=== PATIENT | female | born 1935 | race Caucasian/White ===

== ENCOUNTER 2016-08-22 08:27 | Outpatient (CLI) ==
[2013-02-21 18:15] VITALS: BMI 18.8
[2016-08-22 15:51] LABS: BASOPHILS # (AUTO) 0.1 K/uL (0-0.2); BASOPHILS % (AUTO) 1.1 % (0.0-3.0); EOSINOPHILS # (AUTO) 0.2 K/ul (0.0-0.7); EOSINOPHILS % (AUTO) 3.8 % (0.0-7.0); HEMATOCRIT 37.7 % (37.0-47.0); IMMATURE GRANULOCYTE % (AUTO) 0.2 % (0.0-5.0); LYMPHOCYTES # (AUTO) 1.8 K/uL (0.60-3.4); LYMPHOCYTES % (AUTO) 32.8 (10.0-50.0); MEAN CORPUSCULAR HEMOGLOBIN 26.5 pg (27.0-31.0); MEAN CORPUSCULAR HGB CONC 31.8 (31.8-35.4); MEAN CORPUSCULAR VOLUME 83.2 fl (81.0-99.0); MONOCYTES # (AUTO) 0.4 K/uL (0.4-2.0); MONOCYTES % (AUTO) 7.4 (0-10); NEUTROPHILS % (AUTO) 54.7; PLATELET COUNT 201 10^3/uL (140-440); RED BLOOD COUNT 4.53 10^6/ul (4.20-5.40); WHITE BLOOD COUNT 5.55 K/ul (4.6-10.2)
[2016-08-22 15:57] LABS: BILIRUBIN,URINE Negative (NEGATIVE); KETONES,URINE Negative (NEGATIVE); LEUKOCYTE ESTERASE ,URINE Trace (NEGATIVE); NITRITE,URINE Negative (NEGATIVE); PROTEIN,URINE Negative (NEGATIVE); URINE, BLOOD Negative (NEGATIVE)
[2016-08-22 15:59] LABS: ALBUMIN 4.1 g/dL (3.4-5.0); ALBUMIN/GLOBULIN RATIO 1.28; ANION GAP 14.7; BILIRUBIN,TOTAL 0.52 mg/dL (0.00-1.20); BUN/CREATININE RATIO 20.18; CALCIUM 9.6 mg/dL (8.2-10.2); CREATININE 1.09 mg/dL (0.60-1.30); POTASSIUM 4.7 mmol/L (3.5-5.10); TOTAL PROTEIN 7.3 g/dL (5.8-8.1)
[2016-08-22 16:06] LABS: ADD URINE MICROSCOPIC YES
== END 2016-08-22 08:28 | disposition home or self-care (01) ==
LOC: LAB 08:27
PROVIDERS: ATTEND General Practice
DX: C64.9 Malignant neoplasm of unspecified kidney, except renal pelvis (principal); I10 Essential (primary) hypertension; I87.2 Venous insufficiency (chronic) (peripheral); E78.5 Hyperlipidemia, unspecified; Z79.899 Other long term (current) drug therapy
CPT/HCPCS: 36415; 80053; 80061; 81001; 83036; 85025

== ENCOUNTER 2016-12-24 09:46 | Outpatient (CLI) ==
[2013-02-21 18:15] VITALS: BMI 18.8
[2016-12-24 13:20] LABS: BILIRUBIN,URINE Negative (NEGATIVE); KETONES,URINE Negative (NEGATIVE); LEUKOCYTE ESTERASE ,URINE Negative (NEGATIVE); NITRITE,URINE Negative (NEGATIVE); PH,URINE 7.5 (5-9); PROTEIN,URINE Negative (NEGATIVE); URINE, BLOOD Trace-intact (NEGATIVE)
[2016-12-24 13:25] LABS: ALBUMIN/GLOBULIN RATIO 1.25; ANION GAP 17.2; BASOPHILS # (AUTO) 0.1 K/uL (0-0.2); BASOPHILS % (AUTO) 1.1 % (0.0-3.0); BILIRUBIN,TOTAL 0.57 mg/dL (0.00-1.20); BUN/CREATININE RATIO 19.81; CALCIUM 9.5 mg/dL (8.2-10.2); CHOL/HDL RATIO 2.9 (4.5-5.5); CREATININE 1.06 mg/dL (0.60-1.30); EOSINOPHILS # (AUTO) 0.1 K/ul (0.0-0.7); EOSINOPHILS % (AUTO) 1.9 % (0.0-7.0); HEMATOCRIT 37.2 % (37.0-47.0); HEMOGLOBIN 11.9 g/dl (12.0-16.0); IMMATURE GRANULOCYTE % (AUTO) 0.4 % (0.0-5.0); LYMPHOCYTES # (AUTO) 1.6 K/uL (0.60-3.4); MEAN CORPUSCULAR HEMOGLOBIN 27.1 pg (27.0-31.0); MEAN CORPUSCULAR VOLUME 84.7 fl (81.0-99.0); MONOCYTES # (AUTO) 0.4 K/uL (0.4-2.0); MONOCYTES % (AUTO) 7.5 (0-10); NEUTROPHILS # (AUTO) 2.6 K/ul (2.0-6.9); NEUTROPHILS % (AUTO) 55.1; PLATELET COUNT 184 10^3/uL (140-440); POTASSIUM 4.2 mmol/L (3.5-5.10); RED BLOOD COUNT 4.39 10^6/ul (4.20-5.40); TOTAL PROTEIN 7.2 g/dL (5.8-8.1); WHITE BLOOD COUNT 4.67 K/ul (4.6-10.2)
[2016-12-24 14:14] LABS: ADD URINE MICROSCOPIC YES
[2016-12-24 14:37] LABS: BACTERIA,URINE TRACE (NOT PRESENT)
== END 2016-12-24 09:47 | disposition home or self-care (01) ==
LOC: LAB 09:46
PROVIDERS: ATTEND General Practice
DX: C64.9 Malignant neoplasm of unspecified kidney, except renal pelvis (principal); I10 Essential (primary) hypertension; R09.89 Other specified symptoms and signs involving the circulatory and respiratory systems; Z79.899 Other long term (current) drug therapy
CPT/HCPCS: 36415; 80053; 80061; 81001; 85025; 87086

== ENCOUNTER 2017-01-19 08:38 | Outpatient (CLI) ==
[2013-02-21 18:15] VITALS: BMI 18.8
[2017-01-19 09:08] LABS: HEMATOCRIT 37.5 % (37.0-47.0); HEMOGLOBIN 12.2 g/dl (12.0-16.0); MEAN CORPUSCULAR HEMOGLOBIN 27.3 pg (27.0-31.0); MEAN CORPUSCULAR HGB CONC 32.5 (31.8-35.4); MEAN CORPUSCULAR VOLUME 83.9 fl (81.0-99.0); RED BLOOD COUNT 4.47 10^6/ul (4.20-5.40); WHITE BLOOD COUNT 5.11 K/ul (4.6-10.2)
--- NOTE | 2017-01-19 09:08 | DI ---
EXAM: Two views of the chest. History: Renal cell carcinoma. Comparison: Chest radiograph 01/29/2016 Findings: Heart size is within normal limits. No focal consolidation. No appreciable pleural flui d and no pneumothorax. Atherosclerotic vascular calcifications. Scoliosis. Impression: No acute cardiopulmonary process. No change compared to the prior study.
[2017-01-19 09:25] LABS: ALBUMIN 4.3 g/dL (3.4-5.0); ALBUMIN/GLOBULIN RATIO 1.43; BILIRUBIN,TOTAL 0.65 mg/dL (0.00-1.20); BUN/CREATININE RATIO 16.66; CALCIUM 9.9 mg/dL (8.2-10.2); CREATININE 1.14 mg/dL (0.60-1.30); TOTAL PROTEIN 7.3 g/dL (5.8-8.1)
--- NOTE | 2017-01-19 09:27 | US ---
EXAM: RENAL ULTRASOUND HISTORY: Renal cell carcinoma. Left nephrectomy 2012. FINDINGS: Ultrasound renal. Duncan-scale ultrasound and color Doppler imaging was performed. The right kidney measured 10.3 x 4.0 x 4.1 cm. The right kidney had grossly normal cortical echogen[place] and volume without sonographic evidence of mass or hydronephrosis. The urinary bladder was les s than optimally distended for evaluation although grossly unremarkable. IMPRESSION: Previous left nephrectomy. Right kidney appeared grossly normal within limits of sonography as did the urinary bladder.
== END 2017-01-19 08:39 | disposition home or self-care (01) ==
LOC: RAD 08:38
PROVIDERS: ATTEND Urology
DX: C64.9 Malignant neoplasm of unspecified kidney, except renal pelvis (principal)
CPT/HCPCS: 36415; 76770; 80053; 85027

== ENCOUNTER 2017-05-22 08:56 | Outpatient (CLI) ==
[2013-02-21 18:15] VITALS: BMI 18.8
[2017-05-22 10:04] LABS: BASOPHILS # (AUTO) 0.1 K/uL (0-0.2); BASOPHILS % (AUTO) 0.9 % (0.0-3.0); EOSINOPHILS # (AUTO) 0.1 K/ul (0.0-0.7); EOSINOPHILS % (AUTO) 1.1 % (0.0-7.0); HEMOGLOBIN 11.9 g/dl (12.0-16.0); IMMATURE GRANULOCYTE % (AUTO) 0.2 % (0.0-5.0); LYMPHOCYTES # (AUTO) 1.7 K/uL (0.60-3.4); LYMPHOCYTES % (AUTO) 31.1 (10.0-50.0); MEAN CORPUSCULAR HEMOGLOBIN 27.7 pg (27.0-31.0); MEAN CORPUSCULAR HGB CONC 33.1 (31.8-35.4); MEAN CORPUSCULAR VOLUME 83.9 fl (81.0-99.0); MONOCYTES # (AUTO) 0.4 K/uL (0.4-2.0); MONOCYTES % (AUTO) 7.6 (0-10); NEUTROPHILS # (AUTO) 3.3 K/ul (2.0-6.9); NEUTROPHILS % (AUTO) 59.1; PLATELET COUNT 188 10^3/uL (140-440); RED BLOOD COUNT 4.29 10^6/ul (4.20-5.40); WHITE BLOOD COUNT 5.56 K/ul (4.6-10.2)
[2017-05-22 10:06] LABS: ADD URINE MICROSCOPIC YES; BILIRUBIN,URINE Negative (NEGATIVE); KETONES,URINE Negative (NEGATIVE); LEUKOCYTE ESTERASE ,URINE 1+ (NEGATIVE); NITRITE,URINE Negative (NEGATIVE); PROTEIN,URINE Negative (NEGATIVE); URINE, BLOOD Trace-intact (NEGATIVE)
--- NOTE | 2017-05-22 10:09 | US ---
Exam: Duncan-scale and color Doppler ultrasonographic evaluation of the carotid arteries. Comparison: 06/05/2016. Reason for exam: Other specified symptoms of circulatory and respirator FINDINGS: A moderate amount of dense atheromatous plaque is seen in the proximal right internal doan tid artery at the level of the bulb. The right external carotid artery measures 80 cm/sec. The right common carotid artery measures 40 / 10 cm/sec. The right internal carotid artery peak systolic velocity measures 110 cm/sec . The right internal carotid artery/CCA PSV ratio measures 2.9. The right internal carotid artery end-diastolic velocity measures 40 cm/sec. The right vertebral artery was not seen on the examination. There is a small to moderate amount of dense plaque in the proximal left internal carotid artery. The left external carotid artery measures 60 cm/sec. The left common carotid artery measures 70 / 20 cm/sec. The left internal carotid artery systolic velocity measures 100 cm/sec. The left internal carotid artery/CCA PSV ratio measures 1.4. The left internal carotid artery end-diastolic velocity measures 30 cm/sec. There is normal antegrade right vertebral artery flow. Impression: 1. No significant stenotic disease is seen in the right or left internal carotid arteries by peak sy stolic velocity measurements. 2. Dense atherosclerotic plaque in the proximal right internal carotid artery limits interpretation this region secondary to shadowing. 3. The right vertebral artery was not seen on the exam.
[2017-05-22 10:20] LABS: ALBUMIN 3.7 g/dL (3.4-5.0); ALBUMIN/GLOBULIN RATIO 1.12; ANION GAP 12.3; BILIRUBIN,TOTAL 0.45 mg/dL (0.00-1.20); BUN/CREATININE RATIO 18.18; CALCIUM 9.4 mg/dL (8.2-10.2); CHOL/HDL RATIO 3.2 (4.5-5.5); CREATININE 0.99 mg/dL (0.60-1.30); POTASSIUM 4.3 mmol/L (3.5-5.10)
== END 2017-05-22 08:57 | disposition home or self-care (01) ==
LOC: RAD 08:56
PROVIDERS: ATTEND General Practice
DX: R09.89 Other specified symptoms and signs involving the circulatory and respiratory systems (principal); I10 Essential (primary) hypertension; Z79.899 Other long term (current) drug therapy
CPT/HCPCS: 36415; 80053; 80061; 81001; 85025

== ENCOUNTER 2017-07-28 10:49 | Outpatient (CLI) ==
[2013-02-21 18:15] VITALS: BMI 18.8
== END 2017-07-28 10:50 | disposition home or self-care (01) ==
LOC: LAB 10:49
PROVIDERS: ATTEND General Practice
DX: R31.9 Hematuria, unspecified (principal)
CPT/HCPCS: 81001

== ENCOUNTER 2017-08-12 11:41 | Outpatient (CLI) ==
[2013-02-21 18:15] VITALS: BMI 18.8
== END 2017-08-12 11:42 | disposition home or self-care (01) ==
LOC: LAB 11:41
PROVIDERS: ATTEND General Practice
DX: R07.89 Other chest pain (principal)
CPT/HCPCS: 36415; 82550; 93005; 93010

== ENCOUNTER 2017-08-26 09:37 | Outpatient (CLI) ==
[2013-02-21 18:15] VITALS: BMI 18.8
== END 2017-08-26 09:38 | disposition home or self-care (01) ==
LOC: CAR 09:37
PROVIDERS: ATTEND General Practice
DX: I51.7 Cardiomegaly (principal); R01.1 Cardiac murmur, unspecified; R94.31 Abnormal electrocardiogram [ECG] [EKG]

== ENCOUNTER 2017-10-23 09:37 | Outpatient (CLI) ==
[2013-02-21 18:15] VITALS: BMI 18.8
== END 2017-10-23 09:38 | disposition home or self-care (01) ==
LOC: FCC-LAB 09:37
PROVIDERS: ATTEND General Practice
DX: R07.89 Other chest pain (principal)
CPT/HCPCS: 36415; 84484

== ENCOUNTER 2017-10-26 10:31 | Outpatient (CLI) ==
[2013-02-21 18:15] VITALS: BMI 18.8
== END 2017-10-26 10:32 | disposition home or self-care (01) ==
LOC: FCC-LAB 10:31
PROVIDERS: ATTEND General Practice
DX: R31.9 Hematuria, unspecified (principal)
CPT/HCPCS: 81001

== ENCOUNTER 2018-04-21 09:20 | Outpatient (CLI) ==
[2013-02-21 18:15] VITALS: BMI 18.8
== END 2018-04-21 09:21 | disposition home or self-care (01) ==
LOC: RHC-LAB 09:20
PROVIDERS: ATTEND General Practice
DX: I10 Essential (primary) hypertension (principal); I51.7 Cardiomegaly; R09.89 Other specified symptoms and signs involving the circulatory and respiratory systems; Z79.899 Other long term (current) drug therapy
CPT/HCPCS: 36415; 80053; 80061; 81001; 85025

== ENCOUNTER 2018-08-23 07:58 | Outpatient (CLI) ==
[2013-02-21 18:15] VITALS: BMI 18.8
== END 2018-08-23 07:59 | disposition home or self-care (01) ==
LOC: RHC-LAB 07:58
PROVIDERS: ATTEND General Practice
DX: I10 Essential (primary) hypertension (principal); Z79.899 Other long term (current) drug therapy
CPT/HCPCS: 36415; 80053; 80061; 81001; 85025